=== PATIENT | male | born 1980 | race Caucasian/White ===

== ENCOUNTER 2016-04-05 19:14 | Emergency (ER) | payer SELFPAY ==
[~2016-04-05] VITALS: Ht 193 cm; Wt 93.4 kg
[2016-04-05 19:36] VITALS: BP 141/73
[2016-04-05] MEDS ORDERED: Ketorolac 30mg Inj IM ONE (19:45)
[2016-04-05] MEDS ORDERED: Methocarbamol 750mg tab ORAL ONE (19:45)
[2016-04-05] MEDS ORDERED: NORCO 5-325 TA1 EAC1 ORAL (20:07)
[2016-04-05] MEDS ORDERED: IBUPROFEN600 MG ORAL (20:07)
[2016-04-05] MEDS ORDERED: Norco 5mg/325mg tab ORAL ONE (20:15)
[2016-04-05 20:16] VITALS: BP 135/81
--- NOTE | 2016-04-05 21:31 | Emergency Room Report ---
History of Present Illness General Chief Complaint: Pain Source: Patient Present Illness HPI The patient is a 35-year-old male presenting with left knee pain which began yesterday after waking up. The patient is unsure of how or why the pain began. Patient denies any known injury to the knee recently or in the past. The pain is described as a 9/10 dull ache and is worse with movement such as leg extension/walking. The patient denies any radiating pain. Pain is relieved with rest. The patient has tried Motrin at home which does help. The patient denies any other symptoms including fever, chills, N, V, numbness/tingling, SOB , cough, CP Allergies: Coded Allergies: No Known Allergies (Unverified , 04/05/16) Patient History Past Medical History: see triage record Pertinent Family History: none Reviewed Nursing Documentation: PMH: Agreed, PSxH: Agreed Nursing Documentation-PMH Past Medical History: No Stated History Review of Systems All Other Systems: negative except mentioned in HPI Physical Exam Vital Signs Date Time Temp Pulse Resp B/P Pulse Ox O2 Delivery O2 Flow Rate FiO2 04/05/16 19:23 99 16 158/82 97 Room Air 04/05/16 19:36 98.1 Sp02 EP Interpretation: reviewed, normal General Appearance: no apparent distress, alert, GCS 15, non-toxic Head: normocephalic, atraumatic Eyes: bilateral eye PERRL, bilateral eye normal inspection Musculoskeletal: back normal, digits/nails normal, gait/station normal, normal range of motion, no calf tenderness, swelling - mild non pitting edema superior to Knee joint, tender - TTP over L distal rectus femoris Neurologic: alert, oriented x3, responsive, motor strength/tone normal, sensory intact, speech normal Psychiatric: judgement/insight normal, memory normal, mood/affect normal, no suicidal/homicidal ideation Reflexes: 3+ bicep (R), 3+ bicep (L), 3+ tricep (R), 3+ tricep (L), 3+ knee (R) , 3+ knee (L) Skin: normal color, no rash, warm/dry, well hydrated Lymphatic: no adenopathy Procedures Splinting Splinting : Consent: Verbal Location: L knee Pre-Made Type: MARK wrap Splint: knee Pre-Proc Neuro Vasc Exam: normal Post-Proc Neuro Vasc Exam: normal Patient Tolerated: Well Complications: None Medical Decision Making PA Attestation Dr. Ordonez is my supervising physician. Patient management was discussed with my supervising physician Diagnostic Impression: Primary Impression: Strain of left knee Qualified Codes: S86.912A - Strain of unspecified muscle(s) and tendon(s) at lower leg level, left leg, initial encounter ER Course The patient is a 35-year-old male presenting with left knee pain which began yesterday after waking up Ddx considered include but not limited to sprain/strain, fracture, contusion, tendonitis PE: vitals WNL. NAD L knee: TTP over L distal rectus femoris. 1+ non pitting edema superior to L knee. Slow ambulation. No erythema. Warm and dry. No laxity. Xray of L knee: There is a calcification of superior end of patella. Otherwise unremarkable. Pt given Toradol and Robaxin for pain. Mark wrap placed over her left knee and patient was provided crutches. Patient is given rice instructions and is discharged home with a prescription for Motrin and Mcdonough for severe pain. Patient is advised that he may need MRI if pain continues or worsens. ER precautions given. Other X-Ray Diagnostic Results Other X-Ray Diagnostic Results : X-Ray Ordered: L knee Date: Apr 05, 2016 EP Interpretation: Yes Findings: no fractures, no dislocation, no soft tissue swelling, other - Patellar calcification Number of Views: 3 PA Scribe Text I am acting as scribe for my supervising physician. My supervising physician's interpretation of the L knee xrays are there are no fractures, dislocations or soft tissue swelling. Last Vital Signs Date Time Temp Pulse Resp B/P Pulse Ox O2 Delivery O2 Flow Rate FiO2 04/05/16 20:16 98.1 85 16 135/81 100 Room Air Status: improved Disposition: HOME, SELF-CARE Condition: Improved Scripts Hydrocodone Bit/Acetaminophen 5-325* (NORCO 5-325 TABLET*) 1 Each Tablet 1 TAB ORAL Q4H Y for For Pain, #10 TAB Prov: TERZIAN,LORI P.A. 04/05/16 Ibuprofen* (MOTRIN*) 600 Mg Tablet 600 MG ORAL Q8H Y for For Pain, #30 TAB 0 Refills Prov: TERZIAN,LORI P.A. 04/05/16 Patient Instructions: Knee Pain, RICE for Routine Care of Injuries Additional Instructions: I discussed my findings with the patient. All questions and concerns have been answered. Treatment and medication compliance have been addressed. I advised the patient that they need to follow up with PMD in 3-5 days. Return to ED if pain remains or worsens, numbness or tingling occurs, new rash is noticed, fever is noticed, or if needed for any reason. Patient verbalized understanding of discharge instructions. The patient is advised that he will need MRI and further treatment if pain continues LORI DOLAN Apr 05, 2016 21:31
--- NOTE | 2016-04-06 11:08 | Diagnostic Imaging Report ---
Indication: Pain 3 views of the left knee were obtained. Findings: No acute fracture, malalignment, or joint effusion are identified. Joint space is relatively well-maintained. Bone mineralization is within normal limits for age. Impression: Negative exam
== END 2016-04-05 20:16 | disposition home or self-care (01) ==
LOC: EMR 20:02
DX: S86.812A Strain of other muscle(s) and tendon(s) at lower leg level, left leg, initial encounter (principal); X58.XXXA Exposure to other specified factors, initial encounter; Y92.9 Unspecified place or not applicable
CPT/HCPCS: 29530; 73562; 96372; 99284; J1885